=== PATIENT | male | born 1945 | race Caucasian/White ===

== ENCOUNTER 2022-05-22 03:16 | Emergency (ER) | payer MEDICARE, OTHER ==
[~2022-05-22] VITALS: Ht 175.3 cm; Wt 102.0 kg
[2022-05-22] MEDS ORDERED: HYDROCODONE/ACETAMINOPHEN 5/325MG TABLET PO ONE (03:45)
[2022-05-22 04:05] VITALS: BP 146/82
== END 2022-05-22 08:04 | disposition home or self-care (01) ==
LOC: ER 03:16
DX: Z43.6 Encounter for attention to other artificial openings of urinary tract (principal); N40.1 Benign prostatic hyperplasia with lower urinary tract symptoms; R33.8 Other retention of urine; R10.2 Pelvic and perineal pain
CPT/HCPCS: 51702; 99284; A4315